=== PATIENT | male | born 1935 | race Caucasian/White ===

== ENCOUNTER 2016-10-09 07:58 | Emergency (ER) | payer MEDICARE ==
[2016-10-09] MEDS ORDERED: VISIPAQUE 270 MG/ML, 50ML BOTTLE ONE (14:21)
[2016-10-10 10:53] LABS: BLOOD UREA NITROGEN 18 mg/dL (7-18)
== END 2016-10-09 14:57 ==
LOC: ED 07:58
DX: T83.090A Other mechanical complication of cystostomy catheter, initial encounter (principal); R33.9 Retention of urine, unspecified; Z85.9 Personal history of malignant neoplasm, unspecified
CPT/HCPCS: 36415; 51705; 75984; 76770; 80048; 85025; 99156; 99157; 99285; C1725; C1769; Q9966; 82040